=== PATIENT | male | born 1985 | race Two or more races ===

== ENCOUNTER 2016-08-10 21:24 | Emergency (ER) | payer OTHER ==
[~2016-08-10] VITALS: Ht 165.1 cm; Wt 77.1 kg
[2016-08-10 21:25] VITALS: BP 130/90
[2016-08-10] MEDS ORDERED: Bacitracin Oint UD TOPIC ONE (21:41)
[2016-08-10 22:05] VITALS: BP 130/90
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
== END 2016-08-10 22:05 ==
LOC: EDBD 21:24 → EMR 21:37
DX: S30.1XXA Contusion of abdominal wall, initial encounter (principal); S30.811A Abrasion of abdominal wall, initial encounter; Y35.891A Legal intervention involving other specified means, law enforcement official injured, initial encounter
CPT/HCPCS: 99283

== ENCOUNTER 2016-12-15 20:06 | Inpatient (IN) | payer SELFPAY ==
[~2016-12-15] VITALS: Ht 167.6 cm; Wt 59.0 kg
[2016-12-15 20:10] VITALS: BP 130/80
[2016-12-15] MEDS ORDERED: levETIRAcetam 1,000mg/NS100ml 100 ML IVPB ONE (22:00)
[2016-12-15 22:29] LABS: BASOPHILS % (AUTO) 1.1 % (0.0-2.0); EOSINOPHILS % (AUTO) 1.2 % (0.0-3.0); LYMPHOCYTES % (AUTO) 18.9 % (20.0-45.0); MEAN CORPUSCULAR HEMOGLOBIN 34.2 PG (27.0-31.0); MEAN CORPUSCULAR VOLUME 95 FL (80-99); MEAN PLATELET VOLUME 4.9 FL (6.5-10.1); MONOCYTES % (AUTO) 3.6 % (1.0-10.0); NEUTROPHILS % (AUTO) 75.2 % (45.0-75.0); PLATELET COUNT 352 K/UL (150-450); RED BLOOD COUNT 4.88 M/UL (4.70-6.10); RED CELL DISTRIBUTION WIDTH 10.4 % (11.6-14.8); WHITE BLOOD COUNT 5.7 K/UL (4.8-10.8)
[2016-12-15 22:49] LABS: ALANINE AMINOTRANSFERASE 24 U/L (3-41); ALBUMIN/GLOBULIN RATIO 1.8 (1.0-2.7); ANION GAP 23 (5-15); ASPARTATE AMINO TRANSFERASE 40 U/L (5-40); CALCIUM 9.9 mg/dL (8.6-10.2); CARBON DIOXIDE 19 mEQ/L (20-30); CHLORIDE 95 mEQ/L (98-107); CREATININE 1.1 mg/dL (0.7-1.2); GLOMERULAR FILTRATION RATE > 60 mL/min (>60); HEMOLYSIS 19; POTASSIUM 4.1 mEQ/L (3.4-4.9); SODIUM 137 mEQ/L (135-145); TOTAL PROTEIN 8.4 g/dL (6.6-8.7)
[2016-12-15] MEDS ORDERED: ZOFRAN4 MG ORAL (23:09)
[2016-12-15] MEDS ORDERED: KEPPRA500 M4 ORAL (23:09)
[2016-12-15 23:25] VITALS: BP 136/86
[2016-12-16] VITALS (7 sets, daily range): BP systolic 114–133; BP diastolic 56–88
[2016-12-16] MEDS ORDERED: LORazepam Inj 2mg/ml 1ml IV ONE
[2016-12-16] MEDS ORDERED: Acyclovir 1,000 MG in D5W 275 ML IV ONE (00:30)
[2016-12-16] MEDS ORDERED: Acyclovir 500mg Vial IV ONE (00:31)
--- NOTE | 2016-12-16 00:31 | Emergency Room Report ---
History of Present Illness General Chief Complaint: Seizure Source: Patient, EMS Present Illness HPI Patient 31-year-old male brought in by EMS after a witnessed seizure. Patient was reportedly having generalized tonic-clonic seizure which lasted him a time. Patient was sent in by EMS. Patient prior history of alcohol abuse. Patient denied prior seizure history. History is limited by patient's recent alcohol use in mental status. Patient had a tongue abrasion. Allergies: Coded Allergies: No Known Allergies (Unverified , 08/10/16) Patient History Past Medical History: see triage record Reviewed Nursing Documentation: PMH: Agreed, PSxH: Agreed Nursing Documentation-PMH Hx Cardiac Problems: No Hx Hypertension: No Hx Pacemaker: No Hx Asthma: No Hx COPD: No Hx Diabetes: No Hx Cancer: No Hx Gastrointestinal Problems: No Hx Dialysis: No History Of Psychiatric Problem: No Hx Cerebrovascular Accident: No Hx Seizures: Yes Review of Systems All Other Systems: negative except mentioned in HPI Physical Exam Vital Signs Date Time Temp Pulse Resp B/P Pulse Ox O2 Delivery O2 Flow Rate FiO2 12/15/16 20:04 98.1 78 18 130/80 98 Room Air Sp02 EP Interpretation: reviewed, normal General Appearance: normal inspection, well appearing, no apparent distress, alert, GCS 15 Head: atraumatic ENT: normal ENT inspection, hearing grossly normal, normal voice, other - tongue abrasion Neck: normal inspection, full range of motion, supple, no bony tend Respiratory: normal inspection, lungs clear, normal breath sounds, no respiratory distress, no retraction, no wheezing Cardiovascular #1: regular rate, rhythm, no edema Gastrointestinal: normal inspection, normal bowel sounds, non tender, soft, no guarding, no hernia Genitourinary: no CVA tenderness Musculoskeletal: normal inspection, back normal, normal range of motion Neurologic: normal inspection, alert, responsive, screen stretcher III-XII nml as tested, speech normal Psychiatric: normal inspection, judgement/insight normal, mood/affect normal Skin: normal inspection, normal color, no rash Medical Decision Making Diagnostic Impression: Primary Impression: Seizure ER Course Patient presented for seizure . Differential diagnosis included cysticercosis , electrolyte abnormality, mass lesion, or cranial hemorrhage, alcohol withdrawal. Because of complexity of patient's case laboratory testing and imaging studies were ordered. Lab for studies were ordered. Patient noted to have a normal white blood count. Patient was noted to have CT imaging which showed abnormal changes to the left temporal area. The patient was noted to have a second seizure which resolved spontaneously lasting approximately 2 minutes in emergency department. Patient was given IV Keppra. Patient was given IV Zofran. The patient was given IV acyclovir. Labs Test 12/15/16 20:50 White Blood Count 5.7 K/UL (4.8-10.8) Red Blood Count 4.88 M/UL (4.70-6.10) Hemoglobin 16.7 G/DL (14.2-18.0) Hematocrit 46.4 % (42.0-52.0) Mean Corpuscular Volume 95 FL (80-99) Mean Corpuscular Hemoglobin 34.2 PG (27.0-31.0) Mean Corpuscular Hemoglobin Concent 36.0 G/DL (32.0-36.0) Red Cell Distribution Width 10.4 % (11.6-14.8) Platelet Count 352 K/UL (150-450) Mean Platelet Volume 4.9 FL (6.5-10.1) Neutrophils (%) (Auto) 75.2 % (45.0-75.0) Lymphocytes (%) (Auto) 18.9 % (20.0-45.0) Monocytes (%) (Auto) 3.6 % (1.0-10.0) Eosinophils (%) (Auto) 1.2 % (0.0-3.0) Basophils (%) (Auto) 1.1 % (0.0-2.0) Sodium Level 137 mEQ/L (135-145) Potassium Level 4.1 mEQ/L (3.4-4.9) Chloride Level 95 mEQ/L (98-107) Carbon Dioxide Level 19 mEQ/L (20-30) Anion Gap 23 (5-15) Blood Urea Nitrogen 8 mg/dL (7-23) Creatinine 1.1 mg/dL (0.7-1.2) Estimat Glomerular Filtration Rate > 60 mL/min (>60) Glucose Level 126 mg/dL (74-106) Calcium Level 9.9 mg/dL (8.6-10.2) Total Bilirubin 1.0 mg/dL (0.0-1.2) Aspartate Amino Transf (AST/SGOT) 40 U/L (5-40) Alanine Aminotransferase (ALT/SGPT) 24 U/L (3-41) Alkaline Phosphatase 86 U/L (40-129) Total Protein 8.4 g/dL (6.6-8.7) Albumin 5.4 g/dL (3.5-5.2) Globulin 3.0 g/dL Albumin/Globulin Ratio 1.8 (1.0-2.7) Last Vital Signs Date Time Temp Pulse Resp B/P Pulse Ox O2 Delivery O2 Flow Rate FiO2 12/15/16 20:10 78 18 Room Air 12/15/16 20:10 98.1 130/80 98 Status: unchanged Disposition: ADMITTED INPATIENT Condition: Serious Scripts Ondansetron (Zofran) 4 Mg Tablet 4 MG ORAL Q6H Y for Nausea & Vomiting, #30 TAB 0 Refills Prov: Jonah Molina 12/15/16 Levetiracetam (KEPPRA) 500 Mg Tablet 500 MG ORAL EVERY 12 HOURS, #60 TAB 0 Refills Prov: Jonah Molina 12/15/16 Patient Instructions: Seizure, Adult Jonah Molina Dec 16, 2016 00:31
--- NOTE | 2016-12-16 09:12 | Diagnostic Imaging Report ---
Indication: Altered mental status Technique: Continuous helical CT scanning of the head was performed utilizing automated exposure control without intravenous contrast material. Axial and coronal reconstructions were obtained. Comparison: None CT dose: Total DLP 1376 mGycm; CTDI vol 70.4 mGy Findings: There is no acute intracranial hemorrhage, mass effect or cortical edema. There is low-density and apparent volume loss involving the left inferior frontal and anterior temporal lobes. The posterior fossa and fourth ventricle are unremarkable. Sellar and suprasellar regions are grossly unremarkable. Visualized mastoid air cells and paranasal sinuses are unremarkable. No focal lesions of the bony calvarium or soft tissues of the scalp are seen. Impression: No evidence of acute intracranial hemorrhage, mass effect or cortical edema. MRI may be obtained for more sensitive evaluation as clinically indicated. Low-density an apparent volume loss involving the left inferior frontal and anterior temporal lobes suggestive of encephalomalacia from prior insult/injury. The above report is concordant with preliminary reading by [facility]. The CT scanner at [facility] is accredited by the [employer] and the scans are performed using protocols designed to limit radiation exposure to as low as reasonably achievable to attain images of sufficient resolution adequate for diagnostic evaluation.
--- NOTE | 2016-12-16 14:56 | Neurology Progress Note ---
Objective Physical Exam Last Vital Signs Date Time Temp Pulse Resp B/P Pulse Ox O2 Delivery O2 Flow Rate FiO2 12/16/16 12:00 70 12/16/16 11:52 98.9 20 117/75 98 Room Air Laboratory Tests Test 12/15/16 20:50 White Blood Count 5.7 K/UL (4.8-10.8) Red Blood Count 4.88 M/UL (4.70-6.10) Hemoglobin 16.7 G/DL (14.2-18.0) Hematocrit 46.4 % (42.0-52.0) Mean Corpuscular Volume 95 FL (80-99) Mean Corpuscular Hemoglobin 34.2 PG (27.0-31.0) H Mean Corpuscular Hemoglobin Concent 36.0 G/DL (32.0-36.0) Red Cell Distribution Width 10.4 % (11.6-14.8) L Platelet Count 352 K/UL (150-450) Mean Platelet Volume 4.9 FL (6.5-10.1) L Neutrophils (%) (Auto) 75.2 % (45.0-75.0) H Lymphocytes (%) (Auto) 18.9 % (20.0-45.0) L Monocytes (%) (Auto) 3.6 % (1.0-10.0) Eosinophils (%) (Auto) 1.2 % (0.0-3.0) Basophils (%) (Auto) 1.1 % (0.0-2.0) Sodium Level 137 mEQ/L (135-145) Potassium Level 4.1 mEQ/L (3.4-4.9) Chloride Level 95 mEQ/L (98-107) L Carbon Dioxide Level 19 mEQ/L (20-30) L Anion Gap 23 (5-15) H Blood Urea Nitrogen 8 mg/dL (7-23) Creatinine 1.1 mg/dL (0.7-1.2) Estimat Glomerular Filtration Rate > 60 mL/min (>60) Glucose Level 126 mg/dL (74-106) H Calcium Level 9.9 mg/dL (8.6-10.2) Total Bilirubin 1.0 mg/dL (0.0-1.2) Aspartate Amino Transf (AST/SGOT) 40 U/L (5-40) Alanine Aminotransferase (ALT/SGPT) 24 U/L (3-41) Alkaline Phosphatase 86 U/L (40-129) Total Protein 8.4 g/dL (6.6-8.7) Albumin 5.4 g/dL (3.5-5.2) H Globulin 3.0 g/dL Albumin/Globulin Ratio 1.8 (1.0-2.7) Impression/Recommendations Recommendations #[id number] ABIEL HERNÁNDEZ Dec 16, 2016 14:56
[2016-12-16] MEDS: Thiamine HCl 100 MG in D5W 55 ML IVPB SCH (16:36)
[2016-12-16 16:51] LABS: BASOPHILS % (AUTO) 1.7 % (0.0-2.0); EOSINOPHILS % (AUTO) 0.9 % (0.0-3.0); LYMPHOCYTES % (AUTO) 24.7 % (20.0-45.0); MEAN CORPUSCULAR HEMOGLOBIN 34.8 PG (27.0-31.0); MEAN CORPUSCULAR HGB CONC 36.4 G/DL (32.0-36.0); MEAN CORPUSCULAR VOLUME 96 FL (80-99); MEAN PLATELET VOLUME 5.6 FL (6.5-10.1); MONOCYTES % (AUTO) 8.6 % (1.0-10.0); NEUTROPHILS % (AUTO) 64.1 % (45.0-75.0); PLATELET COUNT 289 K/UL (150-450); RED BLOOD COUNT 4.54 M/UL (4.70-6.10); RED CELL DISTRIBUTION WIDTH 10.6 % (11.6-14.8); WHITE BLOOD COUNT 8.2 K/UL (4.8-10.8)
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
[2016-12-17] VITALS: BP 124/69
[2016-12-17 04:00] VITALS: BP 120/67
[2016-12-17 07:43] LABS: BASOPHILS % (AUTO) 1.3 % (0.0-2.0); EOSINOPHILS % (AUTO) 1.8 % (0.0-3.0); LYMPHOCYTES % (AUTO) 36.2 % (20.0-45.0); MEAN CORPUSCULAR HEMOGLOBIN 31.9 PG (27.0-31.0); MEAN CORPUSCULAR HGB CONC 33.8 G/DL (32.0-36.0); MEAN CORPUSCULAR VOLUME 94 FL (80-99); MEAN PLATELET VOLUME 5.8 FL (6.5-10.1); MONOCYTES % (AUTO) 11.3 % (1.0-10.0); NEUTROPHILS % (AUTO) 49.4 % (45.0-75.0); PLATELET COUNT 308 K/UL (150-450); RED BLOOD COUNT 4.96 M/UL (4.70-6.10); RED CELL DISTRIBUTION WIDTH 10.2 % (11.6-14.8); WHITE BLOOD COUNT 5.6 K/UL (4.8-10.8)
[2016-12-17 08:00] VITALS: BP 131/81
[2016-12-17 08:14] LABS: ALANINE AMINOTRANSFERASE 21 U/L (3-41); ALBUMIN/GLOBULIN RATIO 1.7 (1.0-2.7); ANION GAP 13 (5-15); ASPARTATE AMINO TRANSFERASE 33 U/L (5-40); CALCIUM 9.3 mg/dL (8.6-10.2); CARBON DIOXIDE 27 mEQ/L (20-30); CHLORIDE 100 mEQ/L (98-107); CREATININE 0.9 mg/dL (0.7-1.2); GLOMERULAR FILTRATION RATE > 60 mL/min (>60); HEMOLYSIS 6; POTASSIUM 3.9 mEQ/L (3.4-4.9); SODIUM 140 mEQ/L (135-145); TOTAL PROTEIN 7.3 g/dL (6.6-8.7)
[2016-12-17 08:31] LABS: BILIRUBIN,DIRECT 0.3 mg/dL (0.1-0.3)
[2016-12-17 12:00] VITALS: BP 124/70
[2016-12-17 16:00] VITALS: BP 130/75
--- NOTE | 2016-12-17 17:02 | Cardiology Report ---
APPROVED REPORT EKG Measurement Heart [id number] Normal sinus rhythm Left axis deviation Incomplete right bundle branch block Abnormal ECG
[2016-12-17] MEDS: Thiamine HCl 100 MG in D5W 55 ML IVPB SCH (17:48)
[2016-12-17 20:04] VITALS: BP 130/70
--- NOTE | 2016-12-17 23:12 | Nephrology Progress Note ---
Assessment/Plan Problem List: (1) Seizure (2) ETOH abuse Plan IVF. Likely can d/c ivf now. d/c plan for am. seizure precautions. Subjective Subjective no sz Objective Objective Last 24 Hour Vital Signs Date Time Temp Pulse Resp B/P Pulse Ox O2 Delivery O2 Flow Rate FiO2 12/17/16 20:04 97.0 55 20 130/70 98 Room Air 12/17/16 20:00 63 12/17/16 19:00 72 12/17/16 16:00 98.1 19 130/75 98 Room Air 12/17/16 12:00 55 12/17/16 12:00 97.4 66 17 124/70 98 Room Air 12/17/16 08:00 61 12/17/16 08:00 98.6 18 131/81 96 Room Air 12/17/16 04:00 65 12/17/16 04:00 97.3 57 16 120/67 99 Room Air 12/17/16 00:00 61 12/17/16 00:00 99.7 64 18 124/69 98 Room Air Intake and Output 12/16/16 12/17/16 19:00 07:00 Intake Total 780 ml 700 ml Balance 780 ml 700 ml Intake Oral 780 ml 200 ml IV Total 500 ml # Voids 3 1 Laboratory Tests 12/17/16 06:55: White Blood Count 5.6, Red Blood Count 4.96, Hemoglobin 15.8, Hematocrit 46.8, Mean Corpuscular Volume 94, Mean Corpuscular Hemoglobin 31.9H, Mean Corpuscular Hemoglobin Concent 33.8, Red Cell Distribution Width 10.2L, Platelet Count 308, Mean Platelet Volume 5.8L, Neutrophils (%) (Auto) 49.4, Lymphocytes (%) (Auto) 36.2, Monocytes (%) (Auto) 11.3H, Eosinophils (%) (Auto) 1.8, Basophils (%) ( Auto) 1.3, Sodium Level 140, Potassium Level 3.9, Chloride Level 100, Carbon Dioxide Level 27, Anion Gap 13, Blood Urea Nitrogen 8, Creatinine 0.9, Estimat Glomerular Filtration Rate > 60, Glucose Level 91, Calcium Level 9.3, Total Bilirubin 1.4H, Direct Bilirubin 0.3, Aspartate Amino Transf (AST/SGOT) 33, Alanine Aminotransferase (ALT/SGPT) 21, Alkaline Phosphatase 76, Total Protein 7.3, Albumin 4.6, Globulin 2.7, Albumin/Globulin Ratio 1.7 Height (Feet): 5 Height (Inches): 6.00 Weight (Pounds): 130 General Appearance: no apparent distress Cardiovascular: normal rate, regular rhythm Respiratory/Chest: lungs clear Abdomen: non tender, soft Extremities: non-pitting JESS RALPH Dec 17, 2016 23:12
[2016-12-18 00:14] VITALS: BP 120/70
[2016-12-18 04:24] VITALS: BP 116/74
[2016-12-18 08:00] VITALS: BP 122/68
[2016-12-18] MEDS ORDERED: NS 275ml ONE (10:08)
[2016-12-18] MEDS ORDERED: Tubing IV Secondary IV ONE (10:08)
--- NOTE | 2016-12-18 11:10 | Diagnostic Imaging Report ---
Indication: Pain Findings: 3 views of the left wrist were obtained. No acute fractures, malalignment, erosions or periostitis are identified. Bone mineralization is within normal limits. Soft tissues are unremarkable. Impression: Negative examination of the left wrist.
[2016-12-18 12:00] VITALS: BP 132/65
--- NOTE | 2016-12-18 15:22 | Nephrology Progress Note ---
Assessment/Plan Problem List: (1) New onset seizure (2) Alcoholism (3) Homelessness Plan Pt remains stable [facility] to jail Continue keppra 500mg po bid Subjective Constitutional: Denies: chills, diaphoresis, fever, malaise, no symptoms, other , weakness HEENT: Denies: blurred vision, double vision, ear discharge, ear pain, eye pain , mouth pain, mouth swelling, no symptoms, nose congestion, nose pain, other, tearing, throat pain, throat swelling Genitourinary: Denies: burning, discharge, flank pain, frequency, hematuria, incontinence, no symptoms, other, pain, urgency Neurologic/Psychiatric: Denies: anxiety, depressed, emotional problems, headache, no symptoms, numbness, other, paresthesia, pre-existing deficit, seizure, tingling, tremors, weakness Subjective In bed, stated that he is waiting for the IV to be removed. Pt is d'danielle Objective Objective Last 24 Hour Vital Signs Date Time Temp Pulse Resp B/P Pulse Ox O2 Delivery O2 Flow Rate FiO2 12/18/16 12:00 98.2 67 19 132/65 98 Room Air 12/18/16 12:00 68 12/18/16 08:00 46 12/18/16 08:00 97.9 48 19 122/68 98 Room Air 12/18/16 04:24 98.0 57 20 116/74 98 Room Air 12/18/16 04:00 46 12/18/16 00:14 99.1 49 20 120/70 98 Room Air 12/18/16 00:00 63 12/17/16 20:04 97.0 55 20 130/70 98 Room Air 12/17/16 20:00 63 12/17/16 19:00 72 12/17/16 16:00 98.1 19 130/75 98 Room Air Intake and Output 12/17/16 12/18/16 19:00 07:00 Intake Total 1356 ml 300 ml Output Total 600 ml Balance 1356 ml -300 ml Intake Oral 500 ml IV Total 856 ml 300 ml Output Urine Total 600 ml # Voids 4 Height (Feet): 5 Height (Inches): 6.00 Weight (Pounds): 130 General Appearance: no apparent distress, alert EENT: PERRL/EOMI, normal ENT inspection Neck: non-tender, normal alignment, supple, normal inspection Cardiovascular: normal rate, regular rhythm, no JVD Respiratory/Chest: lungs clear, normal breath sounds Abdomen: non tender, soft, no organomegaly, no mass Extremities: normal range of motion, non-tender, normal inspection, no calf tenderness Neurologic: alert, oriented x 3, responsive, normal mood/affect Cindy Brower N.P. Dec 18, 2016 15:22
[2016-12-18 16:00] VITALS: BP 134/79
[2016-12-19] MEDS ORDERED: VITAMIN B-1100 MG ORAL (12:58)
--- NOTE | 2016-12-19 12:59 | Discharge Summary ---
Discharge Summary Hospital Course Date of Admission Dec 16, 2016 at 01:30 Date of Discharge Dec 18, 2016 at 16:50 Admitting Diagnosis joanna Vicente is a 31 year old male who was admitted on Dec 16, 2016 at 01: 30 for Seizure Hospital Course dc summary #[id number] Discharge Medications New Medications: Thiamine Hcl* (Vitamin B-1*) 100 Mg Tablet 100 MG ORAL DAILY, #30 TAB 0 Refills Continued Medications: Levetiracetam (Keppra) 500 Mg Tablet 500 MG ORAL EVERY 12 HOURS, #60 TAB 0 Refills Discontinued Medications: Ondansetron (Zofran) 4 Mg Tablet 4 MG ORAL Q6H PRN for Nausea & Vomiting, #30 TAB 0 Refills Discharge Discharge Disposition Patient was discharged to [facility] Discharge Diagnoses: Discharge Instructions Discharge Instructions Special Instructions I have been assigned to complete a D/C Summary on this account. I was not involved in the patient management Alejandra Kasper NP (Vanchtein) Dec 19, 2016 12:59
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
== END 2016-12-18 16:50 | disposition home or self-care (01) | DRG 101 ==
LOC: EDBD 20:06 → EMR 20:17 → 2E 12-16 01:30 → EDBEDREQ 12-16 03:58
DX: G40.409 Other generalized epilepsy and epileptic syndromes, not intractable, without status epilepticus (principal); F10.20 Alcohol dependence, uncomplicated; Z87.820 Personal history of traumatic brain injury; V89.2XXS Person injured in unspecified motor-vehicle accident, traffic, sequela; Z59.0 Homelessness
CPT/HCPCS: 36415; 70450; 80053; 80299; 82248; 82962; 83880; 85025; 87081; 93005; J2405

== ENCOUNTER 2016-12-26 18:44 | Emergency (ER) | payer SELFPAY ==
[~2016-12-26] VITALS: Ht 165.1 cm; Wt 61.2 kg
[~2016-12-26 18:44] MED LIST: KEPPRA500 M4 ORAL; VITAMIN B-1100 MG ORAL; ZOFRAN4 MG ORAL
[2016-12-26 18:54] VITALS: BP 107/72
[2016-12-26 19:30] VITALS: BP 107/72
[2016-12-26 19:32] LABS: MEAN CORPUSCULAR HEMOGLOBIN 33.5 PG (27.0-31.0); MEAN CORPUSCULAR HGB CONC 35.7 G/DL (32.0-36.0); MEAN CORPUSCULAR VOLUME 94 FL (80-99); MEAN PLATELET VOLUME 5.3 FL (6.5-10.1); PLATELET COUNT 308 K/UL (150-450); RED BLOOD COUNT 3.96 M/UL (4.70-6.10); RED CELL DISTRIBUTION WIDTH 10.7 % (11.6-14.8); WHITE BLOOD COUNT 4.3 K/UL (4.8-10.8)
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
[2016-12-26 19:45] LABS: ANION GAP 15 (5-15); CALCIUM 8.4 mg/dL (8.6-10.2); CARBON DIOXIDE 26 mEQ/L (20-30); CHLORIDE 108 mEQ/L (98-107); CREATININE 0.8 mg/dL (0.7-1.2); GLOMERULAR FILTRATION RATE > 60 mL/min (>60); HEMOLYSIS 5; POTASSIUM 3.3 mEQ/L (3.4-4.9); SODIUM 149 mEQ/L (135-145)
[2016-12-26 20:19] LABS: EOSINOPHILS % (MANUAL) 2 % (0-3); LYMPHOCYTES % (MANUAL) 66 % (20-45); NEUTROPHILS % (MANUAL) 25 % (45-75); TOTAL CELLS COUNTED 100
[2016-12-26 20:20] LABS: BAND NEUTROPHILS % (MANUAL) 0 % (0-8); BASOPHILS % (MANUAL) 0 % (0-2); PLATELET ESTIMATE ADEQUATE; PLATELET MORPHOLOGY NORMAL
== END 2016-12-26 19:30 | disposition left against medical advice (07) ==
LOC: EDBD 18:44 → EMR 19:30
DX: F10.929 Alcohol use, unspecified with intoxication, unspecified (principal)
CPT/HCPCS: 36415; 80048; 85007; 85025; 99283

== ENCOUNTER 2017-03-13 01:13 | Emergency (ER) | payer SELFPAY ==
[~2017-03-13] VITALS: Ht 172.7 cm; Wt 81.6 kg
[2017-03-13 01:22] VITALS: BP 115/73
[2017-03-13] MEDS ORDERED: Haloperidol 5mg/ml Inj IM ONE (02:00)
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
[2017-03-13 04:55] VITALS: BP 124/68
[2017-03-13 06:47] VITALS: BP 112/78
[2017-03-13 09:21] VITALS: BP 112/78
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
== END 2017-03-13 09:25 | disposition home or self-care (01) ==
LOC: EDBD 01:13 → EMR 01:57
DX: F10.20 Alcohol dependence, uncomplicated (principal)
CPT/HCPCS: 71010; 96372; 99283; J1630

== ENCOUNTER 2017-12-14 16:42 | Emergency (ER) | payer SELFPAY ==
[~2017-12-14] VITALS: Ht 165.1 cm; Wt 77.1 kg
[2017-12-14 16:49] VITALS: BP 112/66
[2017-12-14 17:42] LABS: ANION GAP 12 mmol/L (5-15); BLOOD UREA NITROGEN 7 mg/dL (7-18); CALCIUM 8.2 MG/DL (8.5-10.1); CARBON DIOXIDE 24 MMOL/L (21-32); CHLORIDE 110 MMOL/L (98-107); CREATININE 0.9 MG/DL (0.55-1.30); POTASSIUM 3.5 MMOL/L (3.5-5.1); SODIUM 146 MMOL/L (136-145)
--- NOTE | 2017-12-14 18:48 | Emergency Room Report ---
History of Present Illness General Chief Complaint: Alcohol Intoxication Source: Patient Present Illness HPI 32-year-old male presents to the emergency department for acute alcohol intoxication. Patient denies medical complaints at this time he denies pain he denies trauma or fall. Patient reports that he has been drinking as well as smoking marijuana today. Patient denies significant past medical history he states he is not currently taking any medications. Patient denies neck, back or abdominal pain/symptoms. Allergies: Coded Allergies: No Known Allergies (Unverified , 08/10/16) UNABLE TO ASSESS (Unverified , 03/13/17) Patient History Past Medical History: see triage record Past Surgical History: unable to obtain Pertinent Family History: none Reviewed Nursing Documentation: PMH: Agreed; PSxH: Agreed Nursing Documentation-PMH Past Medical History: No Stated History Hx Cardiac Problems: No Hx Hypertension: No Hx Pacemaker: No Hx Asthma: No Hx COPD: No Hx Diabetes: No Hx Cancer: No Hx Gastrointestinal Problems: No Hx Dialysis: No Hx Neurological Problems: Yes Hx Cerebrovascular Accident: No Hx Seizures: Yes Review of Systems All Other Systems: negative except mentioned in HPI Physical Exam Vital Signs Date Time Temp Pulse Resp B/P (MAP) Pulse Ox O2 Delivery O2 Flow Rate FiO2 12/14/17 16:37 98.4 102 18 112/66 99 Room Air 98.4 Sp02 EP Interpretation: reviewed, normal General Appearance: no apparent distress, alert, GCS 15, non-toxic Head: normocephalic, atraumatic Eyes: bilateral eye normal inspection, bilateral eye PERRL ENT: hearing grossly normal, normal voice Neck: full range of motion, no bony tend Respiratory: chest non-tender, lungs clear, normal breath sounds, no respiratory distress, no wheezing, speaking full sentences Cardiovascular #1: regular rate, rhythm, no edema Gastrointestinal: normal bowel sounds, non tender, soft, non-distended, no guarding Musculoskeletal: back normal, gait/station normal, normal range of motion, non- tender Neurologic: alert, oriented x3, responsive, motor strength/tone normal, sensory intact, speech normal - Inebriated, grossly normal Psychiatric: judgement/insight normal Skin: normal color, no rash, warm/dry, well hydrated, other - no open wounds or evidence of infection. Lymphatic: no adenopathy Medical Decision Making PA Attestation Dr. rehman is my supervising Physician whom patient management has been discussed with. Diagnostic Impression: Primary Impression: Acute alcoholic intoxication Qualified Codes: F10.929 - Alcohol use, unspecified with intoxication, unspecified Additional Impression: Marijuana use ER Course Pt. presents to the ED intoxicated with alcohol, Pt. is NAD, pt. is alert, no obvious signs of trauma, able to ambulate to chair. Ddx considered but are not limited to ETOH, Trauma, Syncope, dementia, OD Vital signs: are WNL, pt. is afebrile H&PE are most consistent with ETOH abuse/intoxication. ORDERS: -Serum ETOH: 409 - AccuCheck: 122 - BMP: WNL -UDS: positive for THC ED INTERVENTIONS: Observance while he detoxifies. Pt. was allowed to sleep/ rest. PT. became awake and alert x 3. While awaiting d/c paperwork pt. was aggressive about wanting to leave. I was notified that he was getting into cabinets in the pt. room and destroying property. DISCHARGE: At this time pt. is stable for d/c to home. Will provide printed patient care instructions, and any necessary prescriptions. Care plan and follow up instructions have been discussed with the patient prior to discharge. Labs Test 12/14/17 17:15 Sodium Level 146 MMOL/L (136-145) Potassium Level 3.5 MMOL/L (3.5-5.1) Chloride Level 110 MMOL/L (98-107) Carbon Dioxide Level 24 MMOL/L (21-32) Anion Gap 12 mmol/L (5-15) Blood Urea Nitrogen 7 mg/dL (7-18) Creatinine 0.9 MG/DL (0.55-1.30) Estimat Glomerular Filtration Rate > 60 mL/min (>60) Glucose Level 117 MG/DL (74-106) Calcium Level 8.2 MG/DL (8.5-10.1) Urine Opiates Screen Negative (NEGATIVE) Urine Barbiturates Screen Negative (NEGATIVE) Phencyclidine (PCP) Screen Negative (NEGATIVE) Urine Amphetamines Screen Negative (NEGATIVE) Urine Benzodiazepines Screen Negative (NEGATIVE) Urine Cocaine Screen Negative (NEGATIVE) Urine Marijuana (THC) Screen Positive (NEGATIVE) Serum Alcohol 409 mg/dL Last Vital Signs Date Time Temp Pulse Resp B/P (MAP) Pulse Ox O2 Delivery O2 Flow Rate FiO2 12/14/17 16:49 98.4 89 18 112/66 99 Room Air 98.4 Disposition: HOME, SELF-CARE Condition: Stable Referrals: NOT CHOSEN IPA/MD,REFERRING (PCP) Patient Instructions: Alcohol Abuse and Nutrition, Alcohol Intoxication, Easy- to-Read Additional Instructions: Take any previously prescribed medications as directed. Discontinue excessive Alcohol intake. Follow up with a Primary Care Provider in 3-5 days, even if your symptoms have resolved. --Please review list of primary care clinics, if you do not already have a primary care provider Return sooner to ED if new symptoms occur, or current symptoms become worse. - Please note that this Emergency Department Report was dictated using [employer] cane scaler helper technology software, occasionally this can lead to erroneous entry secondary to interpretation by the dictation equipment. Radha Larson Dec 14, 2017 18:48
[2017-12-14 18:56] VITALS: BP 107/63
[2017-12-14 18:57] VITALS: BP 107/63
== END 2017-12-14 18:57 | disposition home or self-care (01) ==
LOC: EDBD 16:42 → EMR 16:51
DX: F10.929 Alcohol use, unspecified with intoxication, unspecified (principal); F12.10 Cannabis abuse, uncomplicated
CPT/HCPCS: 36415; 80048; 80307; 99284; G0480; 80329